=== PATIENT | male | born 1995 | race Caucasian/White ===

== ENCOUNTER 2020-01-27 12:35 | Emergency (ER) | payer BC ==
[~2020-01-27] VITALS: Ht 172.7 cm; Wt 63.5 kg
[2020-01-27 12:43] VITALS: BP 122/75
--- NOTE | 2020-01-27 12:47 | NUR ---
DR. FLOWER AT BEDSIDE FOR EVAL.
--- NOTE | 2020-01-27 13:27 | NUR ---
US TECH AT BEDSIDE
--- NOTE | 2020-01-27 13:52 | NUR ---
Patient discharged to home in stable condition. Written and verbal after care instructions given. Patient verbalizes understanding of instruction.
== END 2020-01-27 13:53 | disposition home or self-care (01) ==
LOC: ER 12:42
DX: S93.492A Sprain of other ligament of left ankle, initial encounter (principal); X58.XXXA Exposure to other specified factors, initial encounter; Y93.89 Activity, other specified; Y92.89 Other specified places as the place of occurrence of the external cause; Y99.8 Other external cause status
CPT/HCPCS: 93971-TC